=== PATIENT | female | born 1945 | race Caucasian/White ===

== ENCOUNTER 2016-10-09 09:00 | Inpatient (IN) | payer MEDICARE, OTHER ==
[~2016-10-09] VITALS: Ht 142.2 cm; Wt 66.8 kg
--- NOTE | ~2016-10-09 | HP ---
PATIENT'S NAME: CHRISTAL ARGUETA [facility] AGE: 71 Y [address] ROOM: [place] [address] LOCATION: [facility] ADMIT DATE: 10/21/2016 History & Physical DISCHARGE DATE: FAMILY PHYSICIAN: Tia Aldridge MD ATTENDING PHYSICIAN: ANURADHA JUAREZ DATE OF SERVICE: CHIEF COMPLAINT: Right knee pain. HISTORY OF PRESENT ILLNESS: The patient was admitted today electively to the care of Dr. Anuradha Juarez, orthopedic surgeon, for right total knee arthroplasty. The surgery was done today and was uncomplicated. When I see her, she is resting quietly postoperative in bed. I have been asked to follow her for medical illness and pain management. CURRENT MEDICATIONS: 1. Prilosec 20. 2. Oxybutynin ER 15 mg 1 daily. ALLERGIES TO MEDICATIONS: No known drug allergies. PREVIOUS OPERATIONS: Status post appendectomy; status post back surgery; C3-C4 cervical fusion; status post x2; status post cholecystectomy; status post tubal ligation, bilateral; status post joint replacement, left knee; 06/30/2016, status post colonoscopy; status post carpal tunnel surgery, right hand. SOCIAL HISTORY: Does not smoke cigarettes. Did smoke in the past. Does not drink alcohol. FAMILY HISTORY: Negative for problems with general anesthesia or bleeding disorder. REVIEW OF SYSTEMS: Positive for hypertension, renal lithiasis, menopause, GERD, and urinary stress incontinence. PHYSICAL EXAMINATION: VITAL SIGNS: Pulse is 80, blood pressure 130/70, temp is normal, O2 saturation normal on room air. HEENT: Shows pupils react to light. TMs not visualized. Posterior pharynx PATIENT'S NAME: HERBIE CODY [facility] AGE: 71 Y [address] ROOM: [place] [address] LOCATION: [facility] ADMIT DATE: 10/21/2016 History & Physical DISCHARGE DATE: FAMILY PHYSICIAN: Tia Aldridge MD ATTENDING PHYSICIAN: ANURADHA JUAREZ is clear. NECK: Unremarkable. Thyroid enlarged. LUNGS: Clear without wheeze or rub. HEART: Shows no murmur, rub, or gallop. BREASTS: Not done. ABDOMEN: Soft without point tenderness or mass. PELVIC AND RECTAL: Exam not done. EXTREMITIES: Dressing and braces on right knee. NEUROLOGIC: Shows cranial nerves intact. No lateralizing signs. MENTAL STATUS: Normal cognition postop. ASSESSMENT: 1. End-stage degenerative joint disease, right knee. 2. Status post right total knee arthroplasty today, 08/23/2016, operating surgeon Dr. Anuradha Juarez. 3. History of gastroesophageal reflux disease. 4. History of urinary stress incontinence. 5. Status post appendectomy. 6. Status post back surgery at C3-C4. 7. Status post x2. 8. Status post cholecystectomy. 9. Status post tubal ligation. 10. Status post left total knee arthroplasty. 11. Status post colonoscopy. 12. Status post carpal tunnel surgery, right hand. 13. Hypertension, essential. 14. Former smoker. 15. History of vitamin D deficiency. PLAN: Follow daily. AMBER ALLEN MD STEAM TABLE ASSOCIATE/modl /[id number] D: [id number] T: [id number] HISTORY & PHYSICAL
--- NOTE | ~2016-10-09 | DS ---
PATIENT'S NAME: HERBIE CANTRELL [facility] AGE: 71 Y [address] ROOM: [place] [address] LOCATION: [facility] ADMIT DATE: 10/21/2016 Discharge Summary DISCHARGE DATE: 10/23/2016 FAMILY PHYSICIAN: Tia Aldridge MD ATTENDING PHYSICIAN: Anuradha Juarez PRIMARY DIAGNOSIS: Degenerative joint disease of the right knee. SECONDARY DIAGNOSES: 1. Hypertension. 2. Gastroesophageal reflux disease. 3. Tobacco abuse, 1/4 pack per day. 4. Vitamin D deficiency. PROCEDURE PERFORMED: Right total knee arthroplasty with computer navigation. HISTORY: The patient is a 71-year-old female, who presents with advanced right knee degenerative joint disease and associated severely compromised activities of daily living. The patient has decided to proceed with total knee arthroplasty after having been thoroughly counseled regarding the risks, benefits, limitations and alternatives. Please refer to the outpatient clinic notes and admission history and physical for this patient. HOSPITAL COURSE: The patient underwent a right total knee arthroplasty on 10/21/2016 without complications. Spinal anesthesia plus adductor canal block plus periarticular local anesthesia was utilized. The patient received 24 hours of perioperative prophylactic antibiotics and remained hemodynamically stable, neurovascularly intact throughout the entire hospital course. The postoperative prophylactic deep venous thrombosis prophylaxis consisted of Xarelto 10 mg, early mobilization, and pneumatic compression devices. Daily physical therapy for gait training, transfer training range of motion and quadriceps isometric exercises were received. The patient progressed well in physical therapy. On the date of discharge, 10/23/2016, the incision at the knee was healing well and showed no signs of infection. DISPOSITION: Home. DISCHARGE ACTIVITY: The patient is to bear weight as tolerated with range of motion and quadriceps isometric exercises as instructed. The operative extremity is to be elevated at least 90% of the day. There is to be sterile 4x4 gauze dressings to the incision daily. Dr. Juarez is to be notified immediately if there is any increased pain, fevers, chills erythema or drainage. DISCHARGE MEDICATIONS: PATIENT'S NAME: HERBIE CANTRELL [facility] AGE: 71 Y [address] ROOM: [place] [address] LOCATION: [facility] ADMIT DATE: 10/21/2016 Discharge Summary DISCHARGE DATE: 10/23/2016 FAMILY PHYSICIAN: Tia Aldridge MD ATTENDING PHYSICIAN: Anuradha Juarez 1. Xarelto 10 mg, take 1 tablet p.o. daily for DVT prevention. 2. Dilaudid 2 mg, take 1 to 2 tablets p.o. every 4 hours as needed for pain. 3. Celebrex 200 mg, take 1 tablet daily x7 days. FOLLOWUP: Followup appointment is to be with Dr. Juarez, date is 1 week subsequent to dismissal for initial postoperative evaluation and x-rays at that time. RIKKI GRAY FOR ANURADHA JUAREZ MD TLB/modl /[id number] d: 11/05/16 0349 t: 11/05/16 0933, DISCHARGE SUMMARY
--- NOTE | ~2016-10-09 | OR ---
PATIENT'S NAME: HERBIE CODY [facility] AGE: 71 Y [address] ROOM: [place] [address] LOCATION: [facility] ADMIT DATE: 10/21/2016 OR/Procedure Report DISCHARGE DATE: FAMILY PHYSICIAN: Tia Aldridge MD ATTENDING PHYSICIAN: ANURADHA JUAREZ SURGEON: Anuradha Juarez MD MACHINE STUFFER AUTOMATIC: 1. RIKKI Bernstein. 2. Kameron Vanessa CST/PERSONAL CARER. DATE OF PROCEDURE: 10/21/2016 PRE-OP DIAGNOSIS: Degenerative joint disease right knee. POST-OP DIAGNOSIS: Degenerative joint disease right knee. OPERATION: Right total knee arthroplasty with computer navigation. ANESTHESIA: Spinal anesthesia plus adductor canal block plus periarticular local anesthesia (ropivacaine with epinephrine and Toradol). ESTIMATED BLOOD LOSS: Less than 10 mL. DRAIN: None. SPECIMEN: None. COMPLICATIONS: None. IMPLANT SYSTEM: [employer]ker Triathlon. Size 3 right posterior stabilized femoral component. Size 3 universal modular tibial base. 11 mm posterior stabilized size 3, X3, tibial polyethylene insert. 29 mm Oval X3 patella component (triple pegged). INDICATIONS FOR SURGERY: Herbie Mario is a 71-year-old female, who presents with advanced right knee degenerative joint disease and associated severely compromised activities of daily living. The patient has decided to proceed with knee replacement after having been thoroughly counseled regarding the associated risks, benefits, and limitations. We have specifically reviewed the risks and implications of infection, deep venous thrombosis, pulmonary embolism, mortality, neurovascular complications, blood transfusion (and associated potential for disease transmission or transfusion reaction), stiffness, instability, mechanical deterioration of the components (due to wear and or loosening), and the potential need for revision. We have also emphasized the importance of active involvement and compliance with post- [facility] 71 Y [address] ROOM: [place] [address] LOCATION: [facility] ADMIT DATE: 10/21/2016 OR/Procedure Report DISCHARGE DATE: FAMILY PHYSICIAN: Tia Aldridge MD ATTENDING PHYSICIAN: ANURADHA JUAREZ operative physical therapy as a means of optimizing range of motion and functional recovery. Informed consent has been granted. DESCRIPTION OF PROCEDURE: The patient was positioned supine after administration of anesthesia and prophylactic antibiotics. A well-padded pneumatic tourniquet was placed around the right proximal thigh, and the right lower extremity was prepped and draped with vigilant sterile technique. The patient's name as well as the intended operative side and procedure were confirmed with a verbal time-out involving myself, the circulating nurse, the scrub nurse, and the anesthesiologist. Examination under anesthesia demonstrated no active skin lesions or masses. There was a large effusion. There was no erythema. There was no abnormal warmth. There were no significant pre-existing scars. Range of motion was from a 10-degree flexion contracture to 120 degrees of flexion. There was no ligamentous insufficiency. The right lower extremity was elevated and exsanguinated with an Esmarch wrap, and the pneumatic tourniquet was inflated to 300mmHg. The knee was approached through a longitudinal midline incision. A medial parapatellar arthrotomy was performed and the patella was everted. Examination of the joint space demonstrated a large amount of benign-appearing translucent synovial fluid. The cruciate ligaments were intact. There was mild generalized nonproliferative synovitis. There was a small osteophyte at the intercondylar notch. There was a 2 x 4 x 5 mm loose body at the medial aspect of the posterior compartment. There was a 1 cm loose body at the posterior aspect of the lateral compartment. There was a 1 x 3 x 4 mm loose body at the lateral aspect of the suprapatellar pouch. There was full-thickness loss of articular cartilage throughout 90% of the medial femoral condyle and the anteromedial 60% of the medial tibial plateau. There was a large osteophyte at the medial femoral condyle. There were small osteophytes at the medial tibial plateau, lateral tibial plateau, lateral femoral trochlea, and the superior and inferomedial margins of the patella. There was full-thickness loss of articular cartilage involving 50% of the medial facet of the patella. There were mild grade 3 degenerative changes at the medial half of the lateral tibial plateau. There was a small osteophyte at the lateral tibial plateau. There was full-thickness loss of articular cartilage involving 90% of the lateral half of the femoral trochlea, and a 6 mm diameter region of full- thickness articular cartilage loss at the medial aspect of the femoral trochlea. There was complex degenerative tearing of the remnant of the medial meniscus. There was mild chondrocalcinosis at the lateral meniscus. Remnants of the menisci and cruciate ligaments were excised. The [employer] computer navigation femoral tracker was pinned in place at the distal aspect PATIENT'S NAME: HERBIE CODY [facility] AGE: 71 Y [address] ROOM: [address] [address] LOCATION: [facility] ADMIT DATE: 10/21/2016 OR/Procedure Report DISCHARGE DATE: FAMILY PHYSICIAN: Tia Aldridge MD ATTENDING PHYSICIAN: ANURADHA JUAREZ of the femoral trochlea. Absence of motion between the femur and the tracking device was confirmed manually and visually. Femoral osseous landmarks were obtained in order to calibrate the computer navigation system. Landmarks included the center of rotation of the ipsilateral hip, the center-point of the distal femur, the femoral AP axis, 57 points on the medial femoral condyle articular surface, and 57 points on the lateral femoral condyle articular surface. The [employer] computer navigation system was subsequently utilized to position the distal femoral resection block such that the distal femoral resection was performed perfectly perpendicular to the femoral mechanical axis. The distal femoral resection was performed with a [employer] Precision oscillating saw. The [employer] computer navigation tibial tracker was pinned in place at the anterior aspect of the tibial plateau. Absence of motion between the tibia and the tracking device was confirmed manually and visually. Tibial osseous landmarks were obtained in order to calibrate the computer navigation system. Landmarks included the center-point of the tibial plateau, the AP tibial axis, 57 points on the medial tibial plateau articular surface, 57 points on the lateral tibial plateau articular surface, the medial malleolus, and the lateral malleolus. The [employer] computer navigation system was subsequently utilized to position the proximal tibial resection block such that the proximal tibial resection was performed perfectly perpendicular to the tibial mechanical axis. The proximal tibial resection was performed with a [employer] Precision oscillating saw. Perpendicularity of the tibial resection with respect to the tibial shaft axis was reconfirmed by inserting a spacer- block attached to an extramedullary guide jose eduardo. External rotation of the anterior and posterior femoral resections was set parallel to the epicondylar axis and carefully adjusted in order to create a rectangular flexion gap. The box resection was performed with a reciprocating saw. Anterior and posterior chamfer resections were performed with the oscillating saw. Posterior condyle osteophytes were excised with an osteotome. All other osteophytes were excised with a rongeur. Resection of all remnants of the menisci was reconfirmed. Flexion and extension gaps were confirmed to be symmetric and well balanced with a spacer-block technique. The patella resection was performed with an oscillating saw such that the composite thickness of the reconstructed patella was equivalent to the thickness of the [place] patella. Patella tracking was confirmed to be optimal. A limited lateral retinacular release was required in order to optimize patella tracking. All trial components were removed and all prepared osseous surfaces were thoroughly irrigated with pulsatile saline lavage and dried prior to cementing all three components in a single stage using [employer] Simplex cement containing PATIENT'S NAME: HERBIE CODY [facility] AGE: 71 Y [address] ROOM: [place] [address] LOCATION: [facility] ADMIT DATE: 10/21/2016 OR/Procedure Report DISCHARGE DATE: FAMILY PHYSICIAN: Tia Aldridge MD ATTENDING PHYSICIAN: ANURADHA JUAREZ pre-mixed tobramycin. All extruded excess cement was removed. The entire joint space was thoroughly inspected and thoroughly irrigated with bacteriostatic pulsatile saline lavage to assure that there was no residual debris of any sort. Final range of motion was from full extension (with no residual flexion contracture and no passive hyperextension) to 130 degrees of flexion. Patella tracking was reconfirmed to be optimal. There was excellent anteroposterior stability at 90 degrees of flexion. There was 0 mm of medial lift-off to valgus stress in full extension. There was 1 mm of lateral lift-off to varus stress in full extension. The arthrotomy was closed with multiple simple and [id number] interrupted #1 Vicryl. Subcutaneous tissues were thoroughly re-irrigated with bacteriostatic pulsatile saline lavage. Subcutaneous tissues were re- approximated with simple buried interrupted #0 Vicryl sutures. The skin was closed with simple buried interrupted 2-0 Vicryl sutures followed by surgical sandra. The dressing consisted of Xeroform gauze, 4x4 gauze, ABD pads and two 6-inch Davidson Wraps. There were no intra-operative complications. It should be noted that the physician's per diem physical therapist assistant played an active, integral role throughout this entire operation. By providing expert retraction, they greatly facilitated and expedited safe and effective exposure of the distal femur, proximal tibia and patella for preparation and implantation of the components. They were also actively involved in the patient's positioning, prepping and draping, as well as wound closure. MD EH OJEDA/demian /[id number] d: 10/21/162111 t: 10/29/16 0752, OPERATIVE SUMMARY
[~2016-10-09 09:00] MED LIST: COLACE100 MG PO; DAILY VALUE1 EACH PO; DILAUDID 2MG(HYD2 MG PO; DITROPAN XL15 MG PO; FISH OIL 1,2001 EACH PO; MIRALAX17 GM; PRESERVISION A1 EACH PO; PRILOSEC20 MG PO; TYLOPHEN500 MG PO; VITAMIN D1000 UNIT PO; XARELTO10 MG
[2016-10-23] MEDS ORDERED: TYLENOL EXTRA500 MG PO (12:43)
[2016-10-23] MEDS ORDERED: COLACE100 MG PO (12:44)
[2016-10-23] MEDS ORDERED: NEURONTIN300 MG PO (12:44)
[2016-10-23] MEDS ORDERED: MIRALAX17 GM PO (12:47)
[2016-10-23] MEDS ORDERED: XARELTO10 MG PO (12:48)
[2016-10-23] MEDS ORDERED: DILAUDID 2MG(HYD2 MG PO (12:51)
[2016-10-23] MEDS ORDERED: CELEBREX200 MG PO (12:51)
== END 2016-10-23 17:35 | disposition disaster alternative care site (69) | DRG 470 ==
LOC: G3N 10-21 06:56
PROVIDERS: ADMIT Orthopaedic Surgery
PROC: 0SRC0J9 Replacement of Right Knee Joint with Synthetic Substitute, Cemented, Open Approach (ICD-10-PCS; principal; 2016-10-21)
DX: M17.11 Unilateral primary osteoarthritis, right knee (principal); I10 Essential (primary) hypertension; K21.9 Gastro-esophageal reflux disease without esophagitis; Z87.891 Personal history of nicotine dependence; E55.9 Vitamin D deficiency, unspecified; N39.3 Stress incontinence (female) (male)
CPT/HCPCS: C1713; C1776; J0690; J1100; J1885; J2001; J2250; J2405; J2795; J7030

== ENCOUNTER → 2017-04-10 | Outpatient (CLI) | payer MEDICARE, OTHER ==
[~2017-04-10] MED LIST changes: +CELEBREX200 MG PO; +MIRALAX17 GM PO; +NEURONTIN300 MG PO; +TYLENOL EXTRA500 MG PO; +XARELTO10 MG PO
--- NOTE | ~2017-04-10 | PUL ---
PATIENT'S NAME: HERBIE CODY [facility] AGE: 72 Y [address] ROOM: [place] [address] LOCATION: [facility] ADMIT DATE: 04/10/2017 Pulmonary DISCHARGE DATE: FAMILY PHYSICIAN: LAYA JACK APRN ATTENDING PHYSICIAN: LAYA JACK NAME OF PROCEDURE: Sleep study PROCEDURE DATE: 04/10/17 TECH: GEETA Fierro TEST #: [facility] [id number] TECHNICAL PARAMETERS: The patient was studied using International 10/20 measuring system. While the patient was studied, there was continuous monitoring of EEG (8 leads), EOG (2 leads), EKG (3 leads), submental EMG (3 leads), tibial (4 leads), respiratory inductive plethysmography (RIP) for thoracic and abdominal effort, oral and nasal airflow with a thermocouple and pressure transducer, and oximetry. The wafer fabrication technician also performed visual and auditory observations noting things like body position, patient's status, breath sounds, artifact, snoring level and patient comments. Continuous sound was monitored using a 2-way speaker system and video monitoring was performed using an infrared camera. Review of the entire study was performed epoch by epoch utilizing a single epoch and multiple epoch capability sleep system. MEDICAL HISTORY: The patient is a 72-year-old woman with daytime sleepiness and snoring. SLEEP STAGE SUMMARY: The patient was studied for 451 minutes of which she slept 395 minutes. She fell asleep in 5 minutes and slept for 88% of the night. Sleep architecture revealed a decline in slow wave and REM sleep. RESPIRATORY SUMMARY: Oxygen saturations ranged from 79-94% and were below 88% for 25 minutes. There were 18 apneas and 40 hypopneas for an apnea/hypopnea index mildly elevated at 8.8.events per hour. The majority of the events occurred with the patient sleeping supine. EKG SUMMARY: Average heart rate during sleep was 55 beats per minute. LIMB MOVEMENT SUMMARY: Periodic limb movement index was mildly to moderately elevated at 19.3 events per hour. Limb movement with arousal index was mildly elevated at 13.5 events per hour. SUMMARY: Obstructive sleep apnea very mild and essentially positional. PATIENT'S NAME: HERBIE CODY [facility] AGE: 72 Y [address] ROOM: [place], [place] [address] LOCATION: [facility] ADMIT DATE: 04/10/2017 Pulmonary DISCHARGE DATE: FAMILY PHYSICIAN: LAYA JACK APRN ATTENDING PHYSICIAN: LAYA JACK IMPRESSION: 1. Mild positional obstructive sleep apnea. 2. Possible periodic limb movement disorder. PLAN: Patient will receive results from the ordering provider. MD GONZALEZ FERNÁNDEZ/ /[id number] dtt: 04/22/17 0806 , Oniel Chin dtd: 04/16/17 0855
== END | disposition disaster alternative care site (69) ==
LOC: GSLP 03-09 21:00
DX: R06.83 Snoring (principal); G47.13 Recurrent hypersomnia; G47.33 Obstructive sleep apnea (adult) (pediatric)